=== PATIENT | female | born 1930 | race Caucasian/White ===

== ENCOUNTER → 2016-11-01 | Outpatient (CLI) | payer OTHER, BC ==
[~2016-11-01] MED LIST: AMLODIPINE BESY10 MG PO; AMOXICILLIN500 MG PO; APRESOLINE25 MG PO; ASCORBIC ACID500 M3 PO; ATENOLOL25 MG PO; CALCITRIOL0.5 MCG PO; COMBIVENT RESPIM4 GM IH; CRESTOR20 MG PO; DETROL LA4 MG PO; FAMOTIDINE20 MG PO; FOLIC ACID1 MG PO; FUROSEMIDE40 MG PO; HYDRALAZINE HCL25 MG PO; HYDROCODON-ACE1 EAC7 PO; LEVOTHYROXINE100 MCG PO; LIDOCAINE700 MG TD; LISINOPRIL10 MG PO; LOVENOX40 MG/0.4 SC; NORVASC10 MG PO; POTASSIUM CHLO20 ME1 PO; SENNA-TIME S T1 EACH PO; THERAGRAN1 TABLET PO; TIROSINT100 MCG PO; TYLENOL ARTHRI650 MG PO; WARFARIN SODIU2.5 MG PO; WARFARIN SODIUM5 MG PO
== END | disposition home or self-care (01) ==
DX: R26.2 Difficulty in walking, not elsewhere classified (principal); M25.561 Pain in right knee; M25.661 Stiffness of right knee, not elsewhere classified; M62.81 Muscle weakness (generalized)
CPT/HCPCS: 97110 GP; 97150 GO; 97161 GP; 97165 GO; G8978 GP; G8979 GP; G8980 GP; G8987 GO; G8988 GO; G8989 GO

== ENCOUNTER 2016-11-14 09:21 | Inpatient (IN) | payer OTHER, BC ==
[~2016-11-14] VITALS: Ht 154.9 cm; Wt 107.0 kg
[~2016-11-14 09:21] MED LIST changes: +CALCITRIOL0.25 MCG PO; +COUMADIN5 MG PO; +COUMADIN7.5 MG PO; +COZAAR50 MG PO; +FERROUS SULFAT325 MG PO; +FLONASE SENSIM9.9 ML BOTH NARES; +LASIX40 MG PO; +MYRBETRIQ50 MG PO; +PROLIA60 MG/1 ML SC; +RESTASIS 01 DROP/0.4 BOTH EYES; +SINGULAIR10 MG PO; +SYMBICORT60 INHALAT IH; +TENORMIN25 MG PO; +TYLENOL EXTRA500 MG PO
[2016-11-14 10:30] VITALS: BP 130/58
[2016-11-14 11:14] LABS: INTER. NORMALIZED RATIO 1.1
[2016-11-14 11:18] LABS: PROTHROMBIN TIME 11.4 (9.2-11.2)
[2016-11-14 15:15] LABS: HEMATOCRIT 33.7 % (36.0-46.0); MCH 32.3 PG (29.0-34.0); MCHC 33.2 G/DL (30.0-36.0); MCV 97.1 FL (83-99); MEAN PLAT.VOLUME 10.7 uM^3 (9.5-12.4); RBC DIS.WIDTH-CV 15.3 % (11.8-14.6); RBC DIS.WIDTH-SD 54.4 % (39-53); RED BLOOD COUNT 3.47 M/uL (3.80-5.20); WHITE BLOOD COUNT 5.6 K/uL (4.1-10.2)
[2016-11-14 15:35] VITALS: BP 128/61
[2016-11-14 15:36] LABS: PLATELET COUNT 125 K/uL (156-360)
[2016-11-14 19:27] VITALS: BP 127/70
[2016-11-14 19:51] VITALS: BP 130/60
[2016-11-15] VITALS (7 sets, daily range): BP systolic 111–160; BP diastolic 59–73
[2016-11-15 05:57] LABS: HEMATOCRIT 33.8 % (36.0-46.0); MCV 95.8 FL (83-99)
[2016-11-15 06:09] LABS: INTER. NORMALIZED RATIO 1.1; PROTHROMBIN TIME 11.5 (9.2-11.2)
[2016-11-15 06:24] LABS: ANION GAP 8 MEQ/L (2-14); CHLORIDE 106 MEQ/L (99-109); GFR ESTIMATE (CALCULATED) > 59 mL/min/; GLUCOSE 140 mg/dL (70-99); POTASSIUM 3.3 MEQ/L (3.7-5.4); SAMPLE HEMOLYSIS CHECK 0; SAMPLE ICTERIC CHECK 0; SAMPLE LIPEMIA CHECK 0; SODIUM 137 MEQ/L (136-147); UREA NITROGEN (BUN) 18 mg/dL (9-23)
[2016-11-16 00:30] VITALS: BP 133/64
[2016-11-16 04:01] VITALS: BP 140/65
[2016-11-16 05:27] LABS: HEMATOCRIT 31.2 % (36.0-46.0); MCV 95.7 FL (83-99)
[2016-11-16 05:34] LABS: INTER. NORMALIZED RATIO 1.4; PROTHROMBIN TIME 13.9 (9.2-11.2)
[2016-11-16 05:44] LABS: ANION GAP 8 MEQ/L (2-14); CHLORIDE 108 MEQ/L (99-109); GFR ESTIMATE (CALCULATED) 56 mL/min/; GLUCOSE 100 mg/dL (70-99); POTASSIUM 4.1 MEQ/L (3.7-5.4); SAMPLE HEMOLYSIS CHECK 0; SAMPLE ICTERIC CHECK 0; SAMPLE LIPEMIA CHECK 0; SODIUM 137 MEQ/L (136-147); UREA NITROGEN (BUN) 20 mg/dL (9-23)
[2016-11-16 07:40] VITALS: BP 140/65
[2016-11-16] MEDS ORDERED: ENDOCET 5-3251 EACH PO (08:23)
[2016-11-16] MEDS ORDERED: METHOCARBAMOL500 MG PO (08:23)
[2016-11-16] MEDS ORDERED: DOCUSATE SODIU100 MG PO (08:23)
[2016-11-16 11:41] VITALS: BP 145/67
[2016-11-16 20:00] VITALS: BP 112/56
[2016-11-16 23:51] VITALS: BP 128/58
[2016-11-17 03:51] VITALS: BP 148/65
[2016-11-17 07:31] LABS: INTER. NORMALIZED RATIO 1.6; PROTHROMBIN TIME 16.4 (9.2-11.2)
[2016-11-17 07:54] VITALS: BP 157/65
== END 2016-11-17 10:13 | DRG 470 ==
LOC: 3WEST 09:21 → 2SOUTH 09:21 → 3WEST 15:12
PROVIDERS: Orthopaedic Surgery; Physician Assistant
PROC: 0SRC0J9 Replacement of Right Knee Joint with Synthetic Substitute, Cemented, Open Approach (ICD-10-PCS; principal; 2016-11-14)
DX: M17.11 Unilateral primary osteoarthritis, right knee (principal); J45.909 Unspecified asthma, uncomplicated; K21.9 Gastro-esophageal reflux disease without esophagitis; I10 Essential (primary) hypertension; I48.91 Unspecified atrial fibrillation; M81.0 Age-related osteoporosis without current pathological fracture; E03.9 Hypothyroidism, unspecified; E87.6 Hypokalemia; Z79.01 Long term (current) use of anticoagulants; Z95.0 Presence of cardiac pacemaker; E78.00 Pure hypercholesterolemia, unspecified
CPT/HCPCS: 71010; 73560; 80048; 85014; 85018; 85027; 85610; 85730; 94640; 94640 76; 99202; C1713; J0690; J1170; J3010; J7050